=== PATIENT | female | born 1975 | race Hispanic/Latino ===

== ENCOUNTER 2019-06-16 12:40 | Outpatient (CLI) | payer OTHER ==
--- NOTE | 2019-06-16 13:21 | CT ---
CT Abdomen Pelvis W Con: 06/16/2019 12:00 AM CLINICAL INFORMATION: Left lower quadrant abdominal pain for 4 weeks COMPARISON: None. TECHNIQUE: Multiple contiguous axial images were obtained and a CT of the abdomen and pelvis with IV contrast. Oral contrast was administered. Coronal reformats were performed. FINDINGS: Lower Chest: within normal limits. Abdomen: Liver: 1.4 cm hypodensity near the dome likely represents a cyst. Bile Ducts: Normal caliber. Gallbladder: Surgically absent. Pancreas: within normal limits. Spleen: within normal limits. Adrenals: within normal limits. Kidneys: within normal limits. Pelvis: Reproductive Organs: No pelvic masses. Ureters: within normal limits. Bladder: within normal limits. Peritoneum: No ascites or free air, no fluid collection. Bowel: Normal caliber. Scattered diverticula in the left colon. There is apparent wall thickening of the rectum which may be secondary to the decompressed state of the colon. No stranding changes are seen to suggest acute inflammation at this time. Normal appendix. Mesentery and Retroperitoneum: No enlarged mesenteric or retroperitoneal lymph nodes. Vessels: Normal. Abdominal Wall: within normal limits. Bones: Within normal limits IMPRESSION: Diverticulosis without evidence of acute diverticulitis
[2019-06-16] MEDS ORDERED: Iopamidol 370 76% 100 ML VIAL ONE (16:19)
== END 2019-06-16 12:41 | disposition home or self-care (01) ==
LOC: BICCT 12:40
PROVIDERS: ATTEND Physician Assistant
DX: R10.32 Left lower quadrant pain (principal); K57.30 Diverticulosis of large intestine without perforation or abscess without bleeding
CPT/HCPCS: 74177; Q9967

== ENCOUNTER 2020-10-28 13:18 | Outpatient (CLI) | payer BC ==
--- NOTE | 2020-10-28 14:13 | MMO ---
Bilateral MAMMO Bilat Screen [facility]. CLINICAL HISTORY: Patient is 45 years old and is seen for screening. The patient has no family history of breast cancer. The patient has no personal history of cancer. VIEWS: The views performed were: bilateral craniocaudal with tomosynthesis and bilateral mediolateral oblique with tomosynthesis. FILMS COMPARED: The present examination has been compared to a prior imaging study performed at [facility] on 02/22/2018. This study has been interpreted with the assistance of computer-aided detection. MAMMOGRAM FINDINGS: There are scattered fibroglandular densities. There are stable benign appearing calcifications seen in both breasts. There are no suspicious masses, suspicious calcifications, or new areas of architectural distortion. IMPRESSION: THERE IS NO MAMMOGRAPHIC EVIDENCE OF MALIGNANCY. A ROUTINE FOLLOW-UP MAMMOGRAM IN 1 YEAR IS RECOMMENDED. THE RESULTS OF THIS EXAM WERE SENT TO THE PATIENT. ACR BI-RADS Category 2 - Benign finding MAMMOGRAPHY NOTE: 1. A negative mammogram report should not delay a biopsy if a dominant of clinically suspicious mass is present. 2. Approximately 10% to 15% of breast cancers are not detected by mammography. 3. Adenosis and dense breasts may obscure an underlying neoplasm. Reported by: PABLO BERMUDEZ MD Electonically Signed: [id number]
== END 2020-10-28 13:19 | disposition home or self-care (01) ==
LOC: BICMAMMO 13:18
PROVIDERS: ATTEND Physician Assistant
DX: Z12.31 Encounter for screening mammogram for malignant neoplasm of breast (principal)
CPT/HCPCS: 77063; 77067

== ENCOUNTER 2021-11-07 10:24 | Outpatient (CLI) | payer BC | END 2021-11-07 10:25 | disposition home or self-care (01) | LOC: BICMAMMO 10:24 | PROVIDERS: ATTEND Family Medicine | DX: Z12.31 Encounter for screening mammogram for malignant neoplasm of breast (principal) | CPT/HCPCS: 77063; 77067 ==

== ENCOUNTER 2023-04-22 10:22 | Inpatient (IN) | payer BC ==
[~2023-04-22 10:22] MED LIST: Iopamidol-370 76% 500 ML MDV (1 ML CHARGE) ONE
[2023-04-22 11:35] LABS: #Eosinphils 0.3 thou/uL (0.0-0.7); #Monocytes 0.4 thou/uL (0.11-0.59); #Neutrophils 6.3 thou/uL (1.40-6.50); %Basophils 0.4 % (0.0-1.0); %Eosinophils 3.3 % (0.0-10.0); %Lymphocytes 29.5 % (21.0-51.0); %Monocytes 4.2 % (0.0-10.0); %Neutrophils 61.9 % (42.0-75.0); Hemoglobin 9.4 g/dL (12.0-16.0); Mean Corpuscular HGB CONC 33.1 g/dL (32.0-36.0); Mean Corpuscular Hemoglobin 28.7 pg (27.0-31.0); Mean Corpuscular Volume 86.6 fl (78.0-98.0); Mean Platelet Volume 12.4 fL (7.4-10.4); Platelet Count 190 10x3/uL (130-400); RBC Distribution Width 13.2 % (11.5-14.5); Red Blood Cell (RBC) Count 3.28 mill/uL (4.20-5.40); White Blood Cell (WBC) Count 10.2 10x3/uL (4.8-10.8)
[2023-04-22 11:46] LABS: BHCG - Serum Negative (NEGATIVE); Pregs Control Background? CLEAR/WHITE (CLR/WHITE); Pregs Control Bar Appear? YES (CONTROL BAR)
[2023-04-22 11:55] LABS: ALT (SGPT) 14 U/L (8-55); AST (SGOT) 19 U/L (5-34); Albumin 4.8 g/dL (3.5-5.0); Alkaline Phosphatase 79 U/L (40-110); Anion Gap 13 mmol/L (10-20); BUN (Urea Nitrogen) 13 mg/dL (7.0-18.7); Bilirubin, Total 0.4 mg/dL (0.2-1.2); Calc. Creatinine Clearance 0 mL/min (70-130); Calcium 9.6 mg/dL (7.8-10.44); Carbon Dioxide 25 mmol/L (22-29); Chloride 109 mmol/L (98-107); Estimated GFR 103; Globulin 2.8 g/dL (2.4-3.5); Glucose 100 mg/dL (70-105); Lipase 13 U/L (8-78); Potassium 3.7 mmol/L (3.5-5.1); Protein, Total 7.6 g/dL (6.0-8.3); Sodium 143 mmol/L (136-145)
[2023-04-22 12:37] LABS: Bacteria/HPF None Seen HPF (None Seen); Bilirubin Negative (Negative); Blood, Urine Negative (Negative); CAUTI Indications for Culture Pelvic or flank pain; Clarity Clear (Clear); Glucose, Urine (Dipstick) Normal (Negative); Ketone, Urine Negative (Negative); Leukocyte Negative Leu/uL (Negative); Nitrite Negative (Negative); Protein, Urine (Dipstick) Negative (Neg-Trace); RBC/HPF 0-3 HPF (0-3); Specific Gravity, Urine 1.007 (1.002-1.036); Squamous Epithelial None Seen HPF (0-3); Urobilinogen Normal mg/dL (Less than 2); WBC/HPF 0-3 HPF (0-3); pH, Urine 7.5 (5.0-9.0)
[2023-04-22 12:42] LABS: Urine Culture Reflex No No
[2023-04-22] MEDS ORDERED: Ketorolac Tromethamine 30 MG/ML VIAL ONE (13:06)
[2023-04-22] MEDS ORDERED: Pantoprazole 40 MG VIAL ONE (13:11)
[2023-04-22] MEDS ORDERED: Ondansetron ODT 4 MG TAB PO PRN (14:10)
[2023-04-22] MEDS ORDERED: GoLYTELY 4,000 ml Bottle PO SCH (14:30)
[2023-04-22] MEDS ORDERED: Lactated Ringer's 1,000 ML IV SCH (14:30)
[2023-04-22] MEDS ORDERED: Pantoprazole 80 MG in Sodium Chloride 0.9% 100 ML IVPB SCH ×2 (14:39→15:00)
[2023-04-22] MEDS ORDERED: Pantoprazole 80 MG, Admixture Fee 1 EACH in Sodium Chloride 0.9% 100 ML IVPB SCH (15:00)
[2023-04-23 06:20] LABS: #Basophils 0.1 thou/uL (0.0-0.2); #Eosinphils 0.3 thou/uL (0.0-0.7); #Monocytes 0.8 thou/uL (0.11-0.59); #Neutrophils 7.6 thou/uL (1.40-6.50); %Basophils 0.5 % (0.0-1.0); %Eosinophils 2.5 % (0.0-10.0); %Lymphocytes 21.4 % (21.0-51.0); %Neutrophils 68.2 % (42.0-75.0); Mean Corpuscular HGB CONC 32.6 g/dL (32.0-36.0); Mean Corpuscular Hemoglobin 28.2 pg (27.0-31.0); Mean Corpuscular Volume 86.5 fl (78.0-98.0); Mean Platelet Volume 12.1 fL (7.4-10.4); Platelet Count 230 10x3/uL (130-400); RBC Distribution Width 13.2 % (11.5-14.5); Red Blood Cell (RBC) Count 3.19 mill/uL (4.20-5.40); White Blood Cell (WBC) Count 11.1 10x3/uL (4.8-10.8)
[2023-04-23 06:40] LABS: Anion Gap 13 mmol/L (10-20); BUN (Urea Nitrogen) 9 mg/dL (7.0-18.7); Calc. Creatinine Clearance 82 mL/min (70-130); Calcium 9.3 mg/dL (7.8-10.44); Carbon Dioxide 25 mmol/L (22-29); Chloride 107 mmol/L (98-107); Estimated GFR 96; Glucose 94 mg/dL (70-105); Potassium 3.4 mmol/L (3.5-5.1); Sodium 142 mmol/L (136-145)
[2023-04-23] MEDS ORDERED: Pantoprazole 80 MG, Admixture Fee 1 EACH in Sodium Chloride 0.9% 100 ML IVPB SCH (06:45)
[2023-04-23] MEDS: Acetaminophen 650 MG Suppository PR PRN ×2 (07:37→13:17)
[2023-04-23] MEDS ORDERED: Iopamidol-370 76% 500 ML MDV (1 ML CHARGE) ONE (09:56)
[2023-04-23] MEDS ORDERED: PHENYLEPHRINE-NS 100 MCG/ML 10 ML SYRINGE ONE (11:07)
[2023-04-23] MEDS ORDERED: Lidocaine 1% PF 5 ML VIAL ONE (11:07)
[2023-04-23] MEDS ORDERED: PROPOFOL 200 MG/20 ML VIAL ONE (11:07)
[2023-04-23] MEDS ORDERED: Morphine 2 MG/ML VIAL SLOW IVP PRN ×2 (13:53→16:30)
[2023-04-23 15:36] LABS: Magnesium 1.8 mg/dL (1.6-2.6); Potassium 3.2 mmol/L (3.5-5.1)
[2023-04-23] MEDS ORDERED: Lorazepam 2 MG/ML VIAL ONE (16:17)
[2023-04-23 16:19] LABS: Base Excess (BEa) 0.3 mEq/L (-2.0 to +3.0); CO2 Tension 29.8 mmHg (35.0-45.0); Carboxyhemoglobin (COHb) 0.3 gm% (0.0-3.0); Hematocrit-ABG 24 % (36.0-47.0); Hemoglobin (Hb) 8.2 g/dL (12.0-16.0); Potassium - ABG Lab 2.85 mmol/L (3.70-5.30); pH, Arterial 7.506 (7.35-7.45)
[2023-04-23 16:20] LABS: Puncture Site RFA
[2023-04-23 16:27] LABS: Hemoglobin 7.8 g/dL (12.0-16.0)
[2023-04-23] MEDS ORDERED: Fentanyl CADD 100 ML IV SCH (16:30)
[2023-04-23] MEDS ORDERED: DISCONTINUE PREVIOUS NARCOTIC PAIN MEDICATIONS AND BENZODIAZEPINES FS SCH (16:30)
[2023-04-23] MEDS ORDERED: Fentanyl BOLUS 250 ML IVPB PRN (16:30)
[2023-04-23] MEDS ORDERED: Propofol 1,000 MG/100 ML VIAL IV PRN (16:30)
[2023-04-23] MEDS ORDERED: Propofol BOLUS 1,000 MG/100 ML VIAL IV PRN (16:30)
[2023-04-23] MEDS ORDERED: Electrolyte Replacement Protocol 1 EACH IVPB ONE (16:37)
[2023-04-23] MEDS ORDERED: Ventilator Sedation Protocol 1 EACH FS SCH ×2 (16:39→16:45)
[2023-04-23] MEDS ORDERED: Electrolyte Replacement Protocol 1 EACH FS SCH (16:39)
[2023-04-23] MEDS ORDERED: Rocuronium Bromide 10 MG/ML (10ML VIAL) ONE (16:40)
[2023-04-23] MEDS ORDERED: Etomidate 20 MG/10 ML VIAL ONE (16:40)
[2023-04-23] MEDS ORDERED: Pantoprazole 80 MG in Sodium Chloride 0.9% 100 ML IVPB SCH (16:49)
[2023-04-23] MEDS ORDERED: Potassium Chloride 40 MEQ in Premix Bag 1 BAG IVPB SCH (17:30)
[2023-04-23] MEDS: Lorazepam 2 MG/ML VIAL SLOW IVP PRN ×2 (18:15→21:49)
[2023-04-23] MEDS: Lactated Ringer's 1,000 ML IV SCH (18:25)
[2023-04-23] MEDS: Potassium Chloride 20 MEQ in Premix Bag 1 BAG IVPB SCH ×2 (18:46→22:45)
[2023-04-24] MEDS: Lorazepam 2 MG/ML VIAL SLOW IVP PRN (04:21)
[2023-04-24] MEDS: Lactated Ringer's 1,000 ML IV SCH ×3 (04:26→23:30)
[2023-04-24 05:24] LABS: #Basophils 0.1 thou/uL (0.0-0.2); #Eosinphils 0.1 thou/uL (0.0-0.7); #Neutrophils 18.3 thou/uL (1.40-6.50); %Basophils 0.3 % (0.0-1.0); %Eosinophils 0.2 % (0.0-10.0); %Lymphocytes 7.9 % (21.0-51.0); %Monocytes 4.7 % (0.0-10.0); %Neutrophils 86.3 % (42.0-75.0); Hemoglobin 9.9 g/dL (12.0-16.0); Mean Corpuscular HGB CONC 35.1 g/dL (32.0-36.0); Mean Corpuscular Hemoglobin 30.6 pg (27.0-31.0); Platelet Count 182 10x3/uL (130-400); RBC Distribution Width 13.9 % (11.5-14.5); Red Blood Cell (RBC) Count 3.24 mill/uL (4.20-5.40); White Blood Cell (WBC) Count 21.2 10x3/uL (4.8-10.8)
[2023-04-24 05:48] LABS: Anion Gap 16 mmol/L (10-20); BUN (Urea Nitrogen) 11 mg/dL (7.0-18.7); Calc. Creatinine Clearance 93 mL/min (70-130); Calcium 7.8 mg/dL (7.8-10.44); Carbon Dioxide 14 mmol/L (22-29); Chloride 107 mmol/L (98-107); Estimated GFR 109; Glucose 100 mg/dL (70-105); Potassium 4.2 mmol/L (3.5-5.1); Sodium 133 mmol/L (136-145)
[2023-04-24] MEDS ORDERED: Magnesium 2 GM/50 ML(in water) 2 GM in Premix Bag 1 BAG IVPB SCH (06:00)
[2023-04-24 07:14] LABS: Actual Bicarbonate (HCO3a) 21.9 mEq/L (22-28); Base Excess (BEa) -2.2 mEq/L (-2.0 to +3.0); CO2 Tension 35.1 mmHg (35.0-45.0); Calcium, Ionized (arterial) 1.16 mmol/L (1.12-1.30); Carboxyhemoglobin (COHb) 0.3 gm% (0.0-3.0); Hematocrit-ABG 31 % (36.0-47.0); Hemoglobin (Hb) 10.7 g/dL (12.0-16.0); O2 Tension (PaO2), arterial 84.1 mmHg (80.0-100.0); Potassium - ABG Lab 4.11 mmol/L (3.70-5.30); pH, Arterial 7.413 (7.35-7.45)
[2023-04-24 07:16] LABS: ALV-art Gradient 157.225 mmHg (0-20); Puncture Site RBA
[2023-04-24] MEDS ORDERED: Piperacillin/Tazobactam 3.375 GM in Sodium Chloride 0.9% 100 ML IVPB SCH (08:15)
[2023-04-24] MEDS: Pantoprazole 40 MG VIAL IVP SCH (09:11)
[2023-04-24] MEDS: Piperacillin/Tazobactam 3.375 GM in Sodium Chloride 0.9% 100 ML IVPB SCH ×2 (12:52→20:47)
[2023-04-24] MEDS ORDERED: Carvedilol 3.125 MG TAB PO SCH (13:00)
[2023-04-24] MEDS ORDERED: Meropenem 1 GM in Sodium Chloride 0.9% 100 ML IVPB SCH (14:00)
[2023-04-24] MEDS ORDERED: NIFEdipine 10 MG CAP PO SCH (14:30)
[2023-04-24] MEDS: Acetaminophen 325 MG TAB PO PRN (20:45)
[2023-04-24] MEDS: Lisinopril 10 MG TAB PO SCH (21:47)
[2023-04-24] MEDS: Carvedilol 3.125 MG TAB PO SCH (21:48)
[2023-04-25] MEDS: Piperacillin/Tazobactam 3.375 GM in Sodium Chloride 0.9% 100 ML IVPB SCH ×3 (03:07→20:19)
[2023-04-25 04:30] LABS: Anion Gap 14 mmol/L (10-20); BUN (Urea Nitrogen) 8 mg/dL (7.0-18.7); Calc. Creatinine Clearance 90 mL/min (70-130); Calcium 8.2 mg/dL (7.8-10.44); Carbon Dioxide 19 mmol/L (22-29); Chloride 110 mmol/L (98-107); Estimated GFR 108; Glucose 88 mg/dL (70-105); Potassium 3.5 mmol/L (3.5-5.1); Sodium 139 mmol/L (136-145)
[2023-04-25 06:23] LABS: #Basophils 0.1 thou/uL (0.0-0.2); #Eosinphils 0.4 thou/uL (0.0-0.7); #Monocytes 0.7 thou/uL (0.11-0.59); #Neutrophils 10.8 thou/uL (1.40-6.50); %Basophils 0.4 % (0.0-1.0); %Eosinophils 2.5 % (0.0-10.0); %Lymphocytes 15.8 % (21.0-51.0); %Monocytes 5.1 % (0.0-10.0); %Neutrophils 75.8 % (42.0-75.0); Hemoglobin 9.1 g/dL (12.0-16.0); Mean Corpuscular HGB CONC 33.8 g/dL (32.0-36.0); Mean Corpuscular Hemoglobin 29.9 pg (27.0-31.0); Mean Corpuscular Volume 88.5 fl (78.0-98.0); Mean Platelet Volume 12.3 fL (7.4-10.4); Platelet Count 158 10x3/uL (130-400); RBC Distribution Width 14.7 % (11.5-14.5); Red Blood Cell (RBC) Count 3.04 mill/uL (4.20-5.40); White Blood Cell (WBC) Count 14.2 10x3/uL (4.8-10.8)
[2023-04-25] MEDS: Levothyroxine Sodium 88 MCG TAB PO SCH (07:22)
[2023-04-25] MEDS ORDERED: Potassium Chloride 20 MEQ TAB PO SCH (08:00)
[2023-04-25] MEDS: Pantoprazole 40 MG VIAL IVP SCH (08:41)
[2023-04-25] MEDS: Lisinopril 10 MG TAB PO SCH ×2 (08:49→20:17)
[2023-04-25] MEDS: Carvedilol 3.125 MG TAB PO SCH ×2 (08:50→20:18)
[2023-04-25] MEDS: Phenol 118 ML BOT PO SCH ×3 (09:23→20:21)
[2023-04-25] MEDS: Acetaminophen 325 MG TAB PO PRN ×2 (10:37→20:46)
[2023-04-25 19:16] LABS: Hemoglobin 10.3 g/dL (12.0-16.0); Mean Corpuscular HGB CONC 33.6 g/dL (32.0-36.0); Mean Corpuscular Hemoglobin 29.9 pg (27.0-31.0); Mean Corpuscular Volume 89.2 fl (78.0-98.0); Platelet Count 219 10x3/uL (130-400); RBC Distribution Width 14.9 % (11.5-14.5); Red Blood Cell (RBC) Count 3.44 mill/uL (4.20-5.40); White Blood Cell (WBC) Count 15.8 10x3/uL (4.8-10.8)
[2023-04-26] MEDS: Piperacillin/Tazobactam 3.375 GM in Sodium Chloride 0.9% 100 ML IVPB SCH (04:16)
[2023-04-26] MEDS: Levothyroxine Sodium 88 MCG TAB PO SCH (06:17)
[2023-04-26 06:51] LABS: #Eosinphils 0.5 thou/uL (0.0-0.7); #Monocytes 0.7 thou/uL (0.11-0.59); #Neutrophils 8.6 thou/uL (1.40-6.50); %Basophils 0.3 % (0.0-1.0); %Eosinophils 3.9 % (0.0-10.0); %Lymphocytes 16.9 % (21.0-51.0); %Neutrophils 72.6 % (42.0-75.0); Hemoglobin 9.1 g/dL (12.0-16.0); Mean Corpuscular HGB CONC 33.6 g/dL (32.0-36.0); Mean Corpuscular Hemoglobin 30.2 pg (27.0-31.0); Mean Platelet Volume 11.9 fL (7.4-10.4); Platelet Count 189 10x3/uL (130-400); RBC Distribution Width 14.6 % (11.5-14.5); Red Blood Cell (RBC) Count 3.01 mill/uL (4.20-5.40); White Blood Cell (WBC) Count 11.8 10x3/uL (4.8-10.8)
[2023-04-26 07:14] LABS: Anion Gap 10 mmol/L (10-20); BUN (Urea Nitrogen) 6 mg/dL (7.0-18.7); Calc. Creatinine Clearance 82 mL/min (70-130); Calcium 8.4 mg/dL (7.8-10.44); Carbon Dioxide 24 mmol/L (22-29); Chloride 112 mmol/L (98-107); Estimated GFR 96; Glucose 87 mg/dL (70-105); Potassium 3.6 mmol/L (3.5-5.1); Sodium 142 mmol/L (136-145)
[2023-04-26] MEDS: Carvedilol 3.125 MG TAB PO SCH ×2 (08:35→19:55)
[2023-04-26] MEDS: Pantoprazole 40 MG VIAL IVP SCH (08:36)
[2023-04-26] MEDS: Phenol 118 ML BOT PO SCH ×3 (08:36→19:55)
[2023-04-26] MEDS ORDERED: Fleet Saline Enema 133 ML BOT FS SCH (12:00)
[2023-04-26] MEDS ORDERED: PROPOFOL 200 MG/20 ML VIAL ONE (12:58)
[2023-04-26] MEDS ORDERED: Lidocaine 1% PF 5 ML VIAL ONE (12:58)
[2023-04-26] MEDS ORDERED: Ondansetron PF 4 MG/2 ML Vial ONE (12:58)
[2023-04-26 14:26] LABS: Hemoglobin 9.4 g/dL (12.0-16.0); Mean Corpuscular HGB CONC 32.9 g/dL (32.0-36.0); Mean Corpuscular Hemoglobin 29.8 pg (27.0-31.0); Mean Corpuscular Volume 90.8 fl (78.0-98.0); Mean Platelet Volume 11.6 fL (7.4-10.4); Platelet Count 212 10x3/uL (130-400); RBC Distribution Width 14.4 % (11.5-14.5); Red Blood Cell (RBC) Count 3.15 mill/uL (4.20-5.40); White Blood Cell (WBC) Count 12.5 10x3/uL (4.8-10.8)
[2023-04-26] MEDS: Acetaminophen 325 MG TAB PO PRN (16:20)
[2023-04-27] MEDS ORDERED: Nitroglycerin 0.4 MG TAB (25 Tab Bottle) ONE (05:28)
[2023-04-27 05:37] LABS: #Basophils 0.1 thou/uL (0.0-0.2); #Eosinphils 0.3 thou/uL (0.0-0.7); #Monocytes 0.7 thou/uL (0.11-0.59); #Neutrophils 11.1 thou/uL (1.40-6.50); %Basophils 0.3 % (0.0-1.0); %Eosinophils 2.2 % (0.0-10.0); %Lymphocytes 16.5 % (21.0-51.0); %Monocytes 4.8 % (0.0-10.0); %Neutrophils 75.8 % (42.0-75.0); Hemoglobin 11.5 g/dL (12.0-16.0); Mean Corpuscular HGB CONC 33.3 g/dL (32.0-36.0); Mean Corpuscular Hemoglobin 29.5 pg (27.0-31.0); Mean Corpuscular Volume 88.5 fl (78.0-98.0); Mean Platelet Volume 11.9 fL (7.4-10.4); Platelet Count 243 10x3/uL (130-400); RBC Distribution Width 14.3 % (11.5-14.5); White Blood Cell (WBC) Count 14.7 10x3/uL (4.8-10.8)
[2023-04-27 05:49] LABS: Platelet Count 243 10x3/uL (130-400)
[2023-04-27] MEDS: Levothyroxine Sodium 88 MCG TAB PO SCH (06:00)
[2023-04-27 06:02] LABS: Fibrinogen 764 mg/dL (253-463)
[2023-04-27 06:03] LABS: D-Dimer Test 1.75 *mcg/mL (0.27-0.43); INR-International Normal Ratio 1.1; PTT 28.6 sec (22.9-36.1); Prothrombin Time 14.2 sec (12.0-14.7)
[2023-04-27 06:07] LABS: ALT (SGPT) 25 U/L (8-55); AST (SGOT) 30 U/L (5-34); Albumin 4.3 g/dL (3.5-5.0); Alkaline Phosphatase 73 U/L (40-110); Anion Gap 17 mmol/L (10-20); BUN (Urea Nitrogen) 4 mg/dL (7.0-18.7); Bilirubin, Total 0.6 mg/dL (0.2-1.2); Calc. Creatinine Clearance 93 mL/min (70-130); Calcium 9.8 mg/dL (7.8-10.44); Carbon Dioxide 21 mmol/L (22-29); Chloride 109 mmol/L (98-107); Estimated GFR 109; Globulin 3.1 g/dL (2.4-3.5); Glucose 102 mg/dL (70-105); Potassium 3.5 mmol/L (3.5-5.1); Protein, Total 7.4 g/dL (6.0-8.3); Sodium 143 mmol/L (136-145)
[2023-04-27 06:17] LABS: Troponin I Less than 0.010 ng/mL (< 0.028)
[2023-04-27] MEDS: Acetaminophen 325 MG TAB PO PRN ×2 (06:37→14:04)
[2023-04-27] MEDS ORDERED: Lactated Ringer's 1,000 ML IV SCH (08:45)
[2023-04-27] MEDS: Pantoprazole 40 MG VIAL IVP SCH (08:50)
[2023-04-27] MEDS: Carvedilol 3.125 MG TAB PO SCH ×2 (08:51→20:03)
[2023-04-27] MEDS: Phenol 118 ML BOT PO SCH ×3 (08:51→21:00)
[2023-04-27] MEDS ORDERED: Potassium Chloride 20 MEQ TAB PO SCH (09:00)
[2023-04-27] MEDS ORDERED: Magnesium 2 GM/50 ML(in water) 2 GM in Premix Bag 1 BAG IVPB SCH (09:00)
[2023-04-27] MEDS ORDERED: Heparin 1,000 UNITS/ML VIAL ONE (10:07)
[2023-04-27 13:52] LABS: Hemoglobin 11.9 g/dL (12.0-16.0)
[2023-04-27] MEDS: hydrALAZINE 20 MG/ML VIAL SLOW IVP PRN (14:04)
[2023-04-27] MEDS: hydrOXYzine 25 MG TAB PO PRN ×2 (14:04→18:22)
[2023-04-27] MEDS ORDERED: Lisinopril 10 MG TAB PO SCH (14:45)
[2023-04-27] MEDS: Lactated Ringer's 1,000 ML IV SCH (18:24)
[2023-04-27] MEDS: Fluticasone Propionate Nasal Spray 16 gm Bottle NASAL SCH (20:03)
[2023-04-27 20:17] LABS: Hemoglobin 14.1 g/dL (12.0-16.0)
[2023-04-27] MEDS ORDERED: Morphine 2 MG/ML VIAL SLOW IVP SCH (23:15)
[2023-04-27 23:54] LABS: Hemoglobin 12.8 g/dL (12.0-16.0)
[2023-04-27] MEDS ORDERED: EPINEPHrine 1 MG/10 ML Abboject SYRINGE ONE (23:58)
[2023-04-28] MEDS ORDERED: Lidocaine 1% PF 5 ML VIAL ONE (00:23)
[2023-04-28] MEDS ORDERED: EPINEPHrine 1 MG/10 ML Abboject SYRINGE ONE (00:23)
[2023-04-28] MEDS ORDERED: PROPOFOL 200 MG/20 ML VIAL ONE (00:23)
[2023-04-28] MEDS ORDERED: Ketamine In 0.9 % NaCl 50 MG/5 ML SYRINGE ONE (00:25)
[2023-04-28] MEDS ORDERED: Midazolam HCl 2 mg/2 ml Vial ONE (00:25)
[2023-04-28] MEDS: Dicyclomine 20 MG/2 ML VIAL IM PRN ×2 (03:13→13:29)
[2023-04-28 03:48] LABS: #Basophils 0.1 thou/uL (0.0-0.2); #Eosinphils 0.1 thou/uL (0.0-0.7); #Monocytes 0.7 thou/uL (0.11-0.59); #Neutrophils 14.4 thou/uL (1.40-6.50); %Basophils 0.4 % (0.0-1.0); %Eosinophils 0.3 % (0.0-10.0); %Lymphocytes 8.6 % (21.0-51.0); %Monocytes 4.3 % (0.0-10.0); %Neutrophils 85.7 % (42.0-75.0); Hemoglobin 11.9 g/dL (12.0-16.0); Mean Corpuscular HGB CONC 34.3 g/dL (32.0-36.0); Mean Corpuscular Hemoglobin 29.8 pg (27.0-31.0); Mean Corpuscular Volume 86.8 fl (78.0-98.0); Mean Platelet Volume 11.4 fL (7.4-10.4); Platelet Count 250 10x3/uL (130-400); RBC Distribution Width 13.7 % (11.5-14.5); White Blood Cell (WBC) Count 16.8 10x3/uL (4.8-10.8)
[2023-04-28] MEDS ORDERED: Morphine 2 MG/ML VIAL SLOW IVP PRN (03:51)
[2023-04-28 04:10] LABS: Anion Gap 11 mmol/L (10-20); BUN (Urea Nitrogen) 10 mg/dL (7.0-18.7); Calc. Creatinine Clearance 93 mL/min (70-130); Calcium 8.4 mg/dL (7.8-10.44); Carbon Dioxide 22 mmol/L (22-29); Chloride 108 mmol/L (98-107); Estimated GFR 110; Glucose 102 mg/dL (70-105); Potassium 3.8 mmol/L (3.5-5.1); Sodium 137 mmol/L (136-145)
[2023-04-28] MEDS: Levothyroxine Sodium 88 MCG TAB PO SCH (06:11)
[2023-04-28] MEDS: Lactated Ringer's 1,000 ML IV SCH ×2 (06:11→14:35)
[2023-04-28] MEDS: Acetaminophen 325 MG TAB PO PRN (08:00)
[2023-04-28] MEDS ORDERED: Magnesium 2 GM/50 ML(in water) 2 GM in Premix Bag 1 BAG IVPB SCH (08:00)
[2023-04-28] MEDS: Pantoprazole 40 MG VIAL IVP SCH (08:00)
[2023-04-28] MEDS: Carvedilol 3.125 MG TAB PO SCH (08:01)
[2023-04-28] MEDS: Phenol 118 ML BOT PO SCH (08:01)
[2023-04-28] MEDS: Lisinopril 10 MG TAB PO SCH (08:01)
[2023-04-28] MEDS: Fluticasone Propionate Nasal Spray 16 gm Bottle NASAL SCH (08:02)
[2023-04-28] MEDS: hydrOXYzine 25 MG TAB PO PRN ×3 (08:05→18:45)
[2023-04-28 08:11] LABS: Hemoglobin 11.8 g/dL (12.0-16.0)
[2023-04-28] MEDS ORDERED: Phenol 118 ML BOT PO PRN (09:36)
[2023-04-28] MEDS: Lidocaine 4% Patch TD SCH (09:49)
[2023-04-28] MEDS: hydrALAZINE 20 MG/ML VIAL SLOW IVP PRN (12:07)
[2023-04-28] MEDS ORDERED: fentaNYL 50 mcg/mL 1 mL Vial SLOW IVP PRN (13:23)
[2023-04-28 14:27] LABS: Bacteria/HPF None Seen HPF (None Seen); Bilirubin Negative (Negative); Blood, Urine Negative (Negative); CAUTI Indications for Culture Dysuria,urgency,freq; Clarity Clear (Clear); Glucose, Urine (Dipstick) Normal (Negative); Ketone, Urine 20 mg/dL (Negative); Leukocyte Negative Leu/uL (Negative); Nitrite Negative (Negative); Protein, Urine (Dipstick) Negative (Neg-Trace); RBC/HPF 0-3 HPF (0-3); Specific Gravity, Urine 1.006 (1.002-1.036); Squamous Epithelial None Seen HPF (0-3); Urobilinogen Normal mg/dL (Less than 2); WBC/HPF 0-3 HPF (0-3)
[2023-04-28 14:29] LABS: Urine Culture Reflex No No
[2023-04-28 14:42] LABS: Hemoglobin 12.8 g/dL (12.0-16.0)
[2023-04-28] MEDS: clonazePAM 0.5 MG TAB PO PRN (19:16)
[2023-04-28 20:41] LABS: Hemoglobin 11.8 g/dL (12.0-16.0)
[2023-04-28] MEDS: Transdermal Patch Removal TOP SCH (21:00)
[2023-04-29 04:23] LABS: Hemoglobin 11.7 g/dL (12.0-16.0)
[2023-04-29 04:26] LABS: #Basophils 0.1 thou/uL (0.0-0.2); #Eosinphils 0.3 thou/uL (0.0-0.7); #Monocytes 0.8 thou/uL (0.11-0.59); #Neutrophils 7.6 thou/uL (1.40-6.50); %Basophils 0.5 % (0.0-1.0); %Eosinophils 2.4 % (0.0-10.0); %Lymphocytes 25.9 % (21.0-51.0); %Monocytes 6.6 % (0.0-10.0); %Neutrophils 64.1 % (42.0-75.0); Hemoglobin 11.5 g/dL (12.0-16.0); Mean Corpuscular HGB CONC 34.2 g/dL (32.0-36.0); Mean Corpuscular Hemoglobin 29.9 pg (27.0-31.0); Mean Corpuscular Volume 87.5 fl (78.0-98.0); Mean Platelet Volume 12.3 fL (7.4-10.4); Platelet Count 176 10x3/uL (130-400); RBC Distribution Width 13.6 % (11.5-14.5); Red Blood Cell (RBC) Count 3.84 mill/uL (4.20-5.40); White Blood Cell (WBC) Count 11.9 10x3/uL (4.8-10.8)
[2023-04-29 04:49] LABS: Anion Gap 11 mmol/L (10-20); BUN (Urea Nitrogen) 7 mg/dL (7.0-18.7); Calc. Creatinine Clearance 99 mL/min (70-130); Calcium 8.8 mg/dL (7.8-10.44); Carbon Dioxide 24 mmol/L (22-29); Chloride 109 mmol/L (98-107); Estimated GFR 111; Glucose 79 mg/dL (70-105); Potassium 3.5 mmol/L (3.5-5.1); Sodium 140 mmol/L (136-145)
[2023-04-29] MEDS: Levothyroxine Sodium 88 MCG TAB PO SCH (07:01)
[2023-04-29] MEDS: Lactated Ringer's 1,000 ML IV SCH ×3 (07:02→19:30)
[2023-04-29] MEDS ORDERED: Potassium Chloride 20 MEQ TAB PO SCH (08:00)
[2023-04-29] MEDS: Fluticasone Propionate Nasal Spray 16 gm Bottle NASAL SCH ×2 (08:48→21:55)
[2023-04-29] MEDS: Pantoprazole 40 MG VIAL IVP SCH (08:48)
[2023-04-29] MEDS: Lisinopril 10 MG TAB PO SCH (08:48)
[2023-04-29] MEDS: Lidocaine 4% Patch TD SCH (08:48)
[2023-04-29 11:18] LABS: Hemoglobin 11.9 g/dL (12.0-16.0)
[2023-04-29 11:34] LABS: Platelet Count 293 10x3/uL (130-400)
[2023-04-29 11:37] LABS: Prothrombin Time 14.1 sec (12.0-14.7)
[2023-04-29] MEDS ORDERED: Lisinopril 10 MG TAB PO SCH (13:45)
[2023-04-29] MEDS: hydrALAZINE 20 MG/ML VIAL SLOW IVP PRN (19:51)
[2023-04-29] MEDS: Transdermal Patch Removal TOP SCH (20:50)
[2023-04-29 21:25] LABS: Hemoglobin 10.9 g/dL (12.0-16.0); Platelet Count 321 10x3/uL (130-400)
[2023-04-29] MEDS: clonazePAM 0.5 MG TAB PO PRN (21:51)
[2023-04-30 04:16] LABS: #Basophils 0.1 thou/uL (0.0-0.2); #Eosinphils 0.6 thou/uL (0.0-0.7); #Neutrophils 8.9 thou/uL (1.40-6.50); %Basophils 0.5 % (0.0-1.0); %Eosinophils 4.2 % (0.0-10.0); %Lymphocytes 22.9 % (21.0-51.0); %Monocytes 7.1 % (0.0-10.0); %Neutrophils 64.5 % (42.0-75.0); Hemoglobin 9.6 g/dL (12.0-16.0); Mean Corpuscular Hemoglobin 29.7 pg (27.0-31.0); Mean Corpuscular Volume 87.3 fl (78.0-98.0); Mean Platelet Volume 11.2 fL (7.4-10.4); Platelet Count 255 10x3/uL (130-400); RBC Distribution Width 13.5 % (11.5-14.5); Red Blood Cell (RBC) Count 3.23 mill/uL (4.20-5.40); White Blood Cell (WBC) Count 13.8 10x3/uL (4.8-10.8)
[2023-04-30 04:36] LABS: Anion Gap 13 mmol/L (10-20); BUN (Urea Nitrogen) 7 mg/dL (7.0-18.7); Calc. Creatinine Clearance 100 mL/min (70-130); Calcium 8.4 mg/dL (7.8-10.44); Carbon Dioxide 21 mmol/L (22-29); Chloride 109 mmol/L (98-107); Estimated GFR 112; Glucose 84 mg/dL (70-105); Potassium 3.5 mmol/L (3.5-5.1); Sodium 139 mmol/L (136-145)
[2023-04-30] MEDS: Lactated Ringer's 1,000 ML IV SCH ×2 (06:28→16:46)
[2023-04-30] MEDS: Levothyroxine Sodium 88 MCG TAB PO SCH ×2 (06:37→12:35)
[2023-04-30] MEDS: Potassium Chloride 20 MEQ in Premix Bag 1 BAG IVPB SCH ×2 (07:28→09:52)
[2023-04-30] MEDS: Lidocaine 4% Patch TD SCH (08:44)
[2023-04-30] MEDS: Pantoprazole 40 MG VIAL IVP SCH (08:45)
[2023-04-30] MEDS: Lisinopril 10 MG TAB PO SCH (10:02)
[2023-04-30] MEDS: clonazePAM 0.5 MG TAB PO PRN (10:32)
[2023-04-30] MEDS: hydrALAZINE 20 MG/ML VIAL SLOW IVP PRN (12:05)
[2023-04-30 12:22] LABS: Hemoglobin 12.1 g/dL (12.0-16.0)
[2023-04-30 13:42] VITALS: BMI 22.9
[2023-04-30 14:29] LABS: Potassium 3.8 mmol/L (3.5-5.1)
[2023-04-30 18:26] LABS: Hemoglobin 11.5 g/dL (12.0-16.0); Platelet Count 283 10x3/uL (130-400)
[2023-04-30] MEDS: Transdermal Patch Removal TOP SCH (21:26)
[2023-05-01 00:10] LABS: Hemoglobin 10.9 g/dL (12.0-16.0); Platelet Count 220 10x3/uL (130-400)
[2023-05-01] MEDS: Lactated Ringer's 1,000 ML IV SCH ×3 (02:16→21:22)
[2023-05-01 04:31] LABS: #Basophils 0.1 thou/uL (0.0-0.2); #Eosinphils 0.6 thou/uL (0.0-0.7); #Monocytes 0.7 thou/uL (0.11-0.59); #Neutrophils 6.7 thou/uL (1.40-6.50); %Basophils 0.5 % (0.0-1.0); %Eosinophils 5.3 % (0.0-10.0); %Lymphocytes 27.9 % (21.0-51.0); %Monocytes 6.3 % (0.0-10.0); %Neutrophils 59.3 % (42.0-75.0); Hemoglobin 10.2 g/dL (12.0-16.0); Mean Corpuscular HGB CONC 33.6 g/dL (32.0-36.0); Mean Corpuscular Hemoglobin 30.4 pg (27.0-31.0); Mean Corpuscular Volume 90.5 fl (78.0-98.0); Mean Platelet Volume 11.4 fL (7.4-10.4); Platelet Count 179 10x3/uL (130-400); RBC Distribution Width 13.8 % (11.5-14.5); Red Blood Cell (RBC) Count 3.36 mill/uL (4.20-5.40); White Blood Cell (WBC) Count 11.2 10x3/uL (4.8-10.8)
[2023-05-01 04:58] LABS: Anion Gap 11 mmol/L (10-20); BUN (Urea Nitrogen) 7 mg/dL (7.0-18.7); Calc. Creatinine Clearance 100 mL/min (70-130); Calcium 8.6 mg/dL (7.8-10.44); Carbon Dioxide 24 mmol/L (22-29); Chloride 110 mmol/L (98-107); Estimated GFR 111; Glucose 96 mg/dL (70-105); Sodium 141 mmol/L (136-145)
[2023-05-01] MEDS: Levothyroxine Sodium 88 MCG TAB PO SCH ×2 (05:33→07:46)
[2023-05-01 06:29] LABS: Hemoglobin 9.7 g/dL (12.0-16.0); Platelet Count 141 10x3/uL (130-400)
[2023-05-01] MEDS: Pantoprazole 40 MG VIAL IVP SCH (07:46)
[2023-05-01] MEDS: Lidocaine 4% Patch TD SCH (07:46)
[2023-05-01] MEDS: Lisinopril 10 MG TAB PO SCH (07:46)
[2023-05-01] MEDS: Fluticasone Propionate Nasal Spray 16 gm Bottle NASAL SCH (07:47)
[2023-05-01 12:00] LABS: Hemoglobin 11.7 g/dL (12.0-16.0)
[2023-05-01 12:06] LABS: Platelet Count 303 10x3/uL (130-400)
[2023-05-01] MEDS: hydrALAZINE 20 MG/ML VIAL SLOW IVP PRN ×2 (16:12→21:28)
[2023-05-01] MEDS ORDERED: hydrALAZINE 25 MG TAB PO SCH (17:13)
[2023-05-01] MEDS ORDERED: Amlodipine 5 MG TAB PO SCH (17:30)
[2023-05-01] MEDS: hydrOXYzine 25 MG TAB PO PRN (21:22)
[2023-05-01] MEDS: Transdermal Patch Removal TOP SCH (21:38)
[2023-05-02 06:17] LABS: #Basophils 0.1 thou/uL (0.0-0.2); #Eosinphils 0.7 thou/uL (0.0-0.7); #Monocytes 0.7 thou/uL (0.11-0.59); #Neutrophils 7.1 thou/uL (1.40-6.50); %Basophils 0.5 % (0.0-1.0); %Eosinophils 6.2 % (0.0-10.0); %Monocytes 5.8 % (0.0-10.0); Hemoglobin 10.9 g/dL (12.0-16.0); Mean Corpuscular HGB CONC 31.6 g/dL (32.0-36.0); Mean Corpuscular Hemoglobin 30.4 pg (27.0-31.0); Mean Corpuscular Volume 96.1 fl (78.0-98.0); Mean Platelet Volume 11.1 fL (7.4-10.4); RBC Distribution Width 13.9 % (11.5-14.5); Red Blood Cell (RBC) Count 3.59 mill/uL (4.20-5.40); White Blood Cell (WBC) Count 11.5 10x3/uL (4.8-10.8)
[2023-05-02 06:18] LABS: Platelet Count 171 10x3/uL (130-400)
[2023-05-02 06:37] LABS: Anion Gap 10 mmol/L (10-20); BUN (Urea Nitrogen) 7 mg/dL (7.0-18.7); Calc. Creatinine Clearance 97 mL/min (70-130); Carbon Dioxide 25 mmol/L (22-29); Chloride 109 mmol/L (98-107); Estimated GFR 110; Glucose 93 mg/dL (70-105); Potassium 3.7 mmol/L (3.5-5.1); Sodium 140 mmol/L (136-145)
[2023-05-02] MEDS: Amlodipine 5 MG TAB PO SCH (09:13)
[2023-05-02] MEDS: Lactated Ringer's 1,000 ML IV SCH (09:13)
[2023-05-02] MEDS: Pantoprazole 40 MG VIAL IVP SCH (09:13)
[2023-05-02] MEDS: Lidocaine 4% Patch TD SCH (09:14)
[2023-05-02] MEDS: Lisinopril 10 MG TAB PO SCH (09:14)
[2023-05-02] MEDS: Fluticasone Propionate Nasal Spray 16 gm Bottle NASAL SCH (09:14)
[2023-05-02] MEDS: Carvedilol 3.125 MG TAB PO SCH (20:18)
[2023-05-02] MEDS: Transdermal Patch Removal TOP SCH (20:19)
[2023-05-03 04:18] LABS: #Basophils 0.1 thou/uL (0.0-0.2); #Eosinphils 0.4 thou/uL (0.0-0.7); #Monocytes 0.5 thou/uL (0.11-0.59); #Neutrophils 5.8 thou/uL (1.40-6.50); %Basophils 0.5 % (0.0-1.0); %Eosinophils 4.5 % (0.0-10.0); %Monocytes 5.3 % (0.0-10.0); Hemoglobin 9.4 g/dL (12.0-16.0); Mean Corpuscular HGB CONC 32.8 g/dL (32.0-36.0); Mean Corpuscular Hemoglobin 30.6 pg (27.0-31.0); Mean Corpuscular Volume 93.5 fl (78.0-98.0); Mean Platelet Volume 11.2 fL (7.4-10.4); RBC Distribution Width 13.8 % (11.5-14.5); Red Blood Cell (RBC) Count 3.07 mill/uL (4.20-5.40); White Blood Cell (WBC) Count 9.7 10x3/uL (4.8-10.8)
[2023-05-03 04:22] LABS: Platelet Count 153 10x3/uL (130-400)
[2023-05-03 04:37] LABS: Anion Gap 9 mmol/L (10-20); BUN (Urea Nitrogen) 9 mg/dL (7.0-18.7); Calc. Creatinine Clearance 93 mL/min (70-130); Carbon Dioxide 22 mmol/L (22-29); Chloride 109 mmol/L (98-107); Estimated GFR 109; Glucose 85 mg/dL (70-105); Sodium 137 mmol/L (136-145)
[2023-05-03] MEDS ORDERED: Potassium Chloride 20 MEQ TAB PO SCH (06:30)
[2023-05-03] MEDS: Levothyroxine Sodium 88 MCG TAB PO SCH (06:46)
[2023-05-03] MEDS: Potassium Chloride 20 MEQ in Premix Bag 1 BAG IVPB SCH ×2 (06:49→08:51)
[2023-05-03 07:43] VITALS: TEMP 98
[2023-05-03] MEDS: Amlodipine 5 MG TAB PO SCH (08:52)
[2023-05-03] MEDS: Lidocaine 4% Patch TD SCH (08:55)
[2023-05-03] MEDS: Fluticasone Propionate Nasal Spray 16 gm Bottle NASAL SCH (08:55)
[2023-05-03] MEDS: Carvedilol 3.125 MG TAB PO SCH (09:36)
[2023-05-03] MEDS: Lisinopril 10 MG TAB PO SCH (10:07)
[2023-05-03 10:08] VITALS: BP 132/73
[2023-05-03 12:33] LABS: Anion Gap 5 mmol/L (10-20); BUN (Urea Nitrogen) 9 mg/dL (7.0-18.7); Calc. Creatinine Clearance 96 mL/min (70-130); Calcium 9.1 mg/dL (7.8-10.44); Carbon Dioxide 22 mmol/L (22-29); Chloride 116 mmol/L (98-107); Estimated GFR 110; Glucose 102 mg/dL (70-105); Potassium 4.2 mmol/L (3.5-5.1); Sodium 139 mmol/L (136-145)
== END 2023-05-03 17:10 | disposition home or self-care (01) | DRG 377 ==
LOC: ERS 10:22 → T4-A 13:16 → OBSVTOIN 04-23 16:40 → CCU 04-23 16:54 → IMCU/EMU 04-24 → T4-B 04-25 12:25 → IMCU/EMU 04-27 05:41 → CCU 04-27 15:29 → IMCU/EMU 04-30 14:21
PROVIDERS: ADMIT Family Medicine; ATTEND Family Medicine
PROC: 0DJ08ZZ Inspection of Upper Intestinal Tract, Via Natural or Artificial Opening Endoscopic (ICD-10-PCS; principal; 2023-04-23)
PROC: 0DJD8ZZ Inspection of Lower Intestinal Tract, Via Natural or Artificial Opening Endoscopic (ICD-10-PCS; 2023-04-23)
PROC: 5A1935Z Respiratory Ventilation, Less than 24 Consecutive Hours (ICD-10-PCS; 2023-04-23)
PROC: 0BH17EZ Insertion of Endotracheal Airway into Trachea, Via Natural or Artificial Opening (ICD-10-PCS; 2023-04-23)
PROC: 30233N1 Transfusion of Nonautologous Red Blood Cells into Peripheral Vein, Percutaneous Approach (ICD-10-PCS; 2023-04-23)
PROC: 4A133R1 Monitoring of Arterial Saturation, Peripheral, Percutaneous Approach (ICD-10-PCS; 2023-04-23)
PROC: 0W3P8ZZ Control Bleeding in Gastrointestinal Tract, Via Natural or Artificial Opening Endoscopic (ICD-10-PCS; 2023-04-26)
PROC: 0W3P8ZZ Control Bleeding in Gastrointestinal Tract, Via Natural or Artificial Opening Endoscopic (ICD-10-PCS; 2023-04-28)
DX: K57.31 Diverticulosis of large intestine without perforation or abscess with bleeding (principal); I46.8 Cardiac arrest due to other underlying condition; J96.00 Acute respiratory failure, unspecified whether with hypoxia or hypercapnia; R57.1 Hypovolemic shock; D62 Acute posthemorrhagic anemia; K62.6 Ulcer of anus and rectum; K63.81 Dieulafoy lesion of intestine; K92.1 Melena; I10 Essential (primary) hypertension; E03.9 Hypothyroidism, unspecified; R55 Syncope and collapse; R82.71 Bacteriuria; D72.829 Elevated white blood cell count, unspecified; K64.8 Other hemorrhoids; F32.A Depression, unspecified; Z79.899 Other long term (current) drug therapy; Z79.890 Hormone replacement therapy; Z82.49 Family history of ischemic heart disease and other diseases of the circulatory system; Z90.49 Acquired absence of other specified parts of digestive tract; Z80.0 Family history of malignant neoplasm of digestive organs
CPT/HCPCS: 36415; 36416; 36430; 36600; 70450; 71045; 74177; 78278; 80048; 80053; 81001; 82274; 82805; 83690; 83735; 84146; 84484; 84703; 85025; 85049; 85300; 85362; 85379; 85384; 85610; 85730; 86850; 86900; 86901; 87040; 87077; 87086; 87186; 93005; 93010; 94002; 94003; 96365; 96366; 96374; 96375; A9560; C9113; G0378; J0171; J0360; J1644; J1885; J2060; J2250; J2272; J2405; J2543; J2704; J3010; J3475; J3480; J3490; J7120; P9016; Q9967

== ENCOUNTER 2023-07-13 07:39 | Outpatient (CLI) | payer BC | END 2023-07-13 07:40 | disposition home or self-care (01) | LOC: CT 07:39 | PROVIDERS: ATTEND Physician Assistant | DX: K42.9 Umbilical hernia without obstruction or gangrene (principal); R10.33 Periumbilical pain; K57.30 Diverticulosis of large intestine without perforation or abscess without bleeding; K63.89 Other specified diseases of intestine | CPT/HCPCS: 74177 ==

== ENCOUNTER 2023-10-08 14:11 | Outpatient (CLI) | payer BC | END 2023-10-08 14:12 | disposition home or self-care (01) | LOC: BICMAMMO 14:11 | PROVIDERS: ATTEND Physician Assistant | DX: Z12.31 Encounter for screening mammogram for malignant neoplasm of breast (principal) | CPT/HCPCS: 77063; 77067 ==

== ENCOUNTER 2024-11-04 14:39 | Outpatient (CLI) | payer BC | END 2024-11-04 14:40 | disposition home or self-care (01) | LOC: BICMAMMO 14:39 | PROVIDERS: ATTEND Nurse Practitioner Family | DX: Z12.31 Encounter for screening mammogram for malignant neoplasm of breast (principal) | CPT/HCPCS: 77063; 77067 ==

== ENCOUNTER 2024-12-20 15:01 | Emergency (ER) | payer BC ==
[2024-12-20 15:44] LABS: #Basophils 0.06 10x3/uL (0.0-0.2); %Basophils 0.4 % (0.0-1.0); %Eosinophils 3.2 % (0.0-10.0); %Lymphocytes 17.5 % (21.0-51.0); %Monocytes 4.7 % (0.0-10.0); %Neutrophils 73.8 % (42.0-75.0); Hematocrit 38.2 % (36.0-47.0); Hemoglobin 12.6 g/dL (12.0-16.0); Mean Corpuscular Hemoglobin 28.3 pg (27.0-31.0); Mean Corpuscular Volume 85.7 fL (78.0-98.0); Mean Platelet Volume 11.5 fL (7.4-10.4); Platelet Count 267 10x3/uL (130-400); RBC Distribution Width 12.9 % (11.5-14.5); Red Blood Cell (RBC) Count 4.46 mill/uL (4.20-5.40)
[2024-12-20 15:48] LABS: Bacteria/HPF None Seen HPF (None Seen); Bilirubin Negative (Negative); Blood, Urine 1+ (Negative); CAUTI Indications for Culture Pelvic or flank pain; Clarity Clear (Clear); Glucose, Urine (Dipstick) Normal (Negative); Ketone, Urine Negative (Negative); Leukocyte 75 Leu/uL (Negative); Nitrite Negative (Negative); Protein, Urine (Dipstick) Negative (Neg-Trace); RBC/HPF None Seen HPF (0-3); Specific Gravity, Urine 1.002 (1.002-1.036); Squamous Epithelial None Seen HPF (0-3); Urobilinogen Normal mg/dL (Less than 2); WBC/HPF 0-3 HPF (0-3)
[2024-12-20 15:49] LABS: Pregnancy Test - Urine (BHCG) Negative (Negative); Pregu Control Bar Appear? YES (CONTROL BAR); Specific Gravity 1.002 (1.002-1.036)
[2024-12-20 15:50] LABS: Pregu Control Background? CLEAR/WHITE (CLR/WHITE); Urine Culture Reflex No No
[2024-12-20 16:07] LABS: ALT (SGPT) 15 U/L (Less than 34); AST (SGOT) 25 U/L (11-34); Albumin 4.2 g/dL (3.1-4.5); Alkaline Phosphatase 114 U/L (40-110); Anion Gap 13 mmol/L (10-20); BUN (Urea Nitrogen) 11 mg/dL (7.0-18.7); Bilirubin, Total 0.5 mg/dL (0.3-1.2); Calc. Creatinine Clearance 0 mL/min (70-130); Calcium 9.4 mg/dL (7.8-10.44); Carbon Dioxide 24 mmol/L (22-29); Chloride 108 mmol/L (98-107); Estimated GFR 94; Globulin 3.7 g/dL (2.4-3.5); Glucose 150 mg/dL (70-105); Potassium 3.8 mmol/L (3.5-5.1); Protein, Total 7.9 g/dL (6.0-8.3); Sodium 141 mmol/L (136-145)
== END 2024-12-20 17:05 | disposition home or self-care (01) ==
LOC: ERS 15:01
DX: K57.32 Diverticulitis of large intestine without perforation or abscess without bleeding (principal); N39.0 Urinary tract infection, site not specified; I10 Essential (primary) hypertension; Z75.8 Other problems related to medical facilities and other health care
CPT/HCPCS: 36415; 74176; 81001; 81025; 83605